=== PATIENT | female | born 1935 | race Caucasian/White ===

== ENCOUNTER 2016-12-13 09:58 | Emergency (ER) | payer MEDICARE, OTHER ==
[~2016-12-13] VITALS: Ht 165.1 cm; Wt 96.6 kg
--- NOTE | 2016-12-13 10:05 | NUR ---
Bib from home due to generalized weakness x 3 days. Pt arrived aao3,.appears in no acute distress,respiration even and unlabored,. patient denies chest pain. No sob, sating well on room air, skin is warm to touch and non diphoretic. Afebrile. vss. gowned and placed pt on tele monitor.
--- NOTE | 2016-12-13 10:07 | NUR ---
iv accessed to right wrist g20. Covered with dry dressing
[2016-12-13] MEDS ORDERED: IV NS 0.9% 1,000 ML ONE (10:14)
[2016-12-13] MEDS ORDERED: IV NS 0.9% 1,000 ML BAG IV ONE ×2 (10:30→11:30)
--- NOTE | 2016-12-13 10:30 | NUR ---
Bella ken in ED - 12/13/16 at 1035 by KEVIN RAM PRESS OPERATOR AT FOR EVALUATION
--- NOTE | 2016-12-13 10:30 | NUR ---
VALVER AT BS FOR CXR
--- NOTE | 2016-12-13 10:31 | NUR ---
URINE SAMPLE SENT TO LAB
--- NOTE | 2016-12-13 10:40 | NUR ---
MD CHAVIS AT BS FOR EVAL
[2016-12-13 10:42] LABS: BASOPHILS # (AUTO) 0.1 /CMM (0.0-0.2); BASOPHILS % (AUTO) 0.5 % (0.0-2.0); HEMATOCRIT 41 % (33-45); HEMOGLOBIN 13.4 g/dL (11.5-14.8); LYMPHOCYTES # (AUTO) 0.7 /CMM (0.8-4.8); LYMPHOCYTES % (AUTO) 4.1 % (20.0-44.0); MEAN CORPUSCULAR HEMOGLOBIN 28 PG (26.0-33.0); MEAN CORPUSCULAR HGB CONC 33 g/dl (31.0-36.0); MEAN CORPUSCULAR VOLUME 85 fL (82-100); MONOCYTES # (AUTO) 1.4 /CMM (0.1-1.30); MONOCYTES % (AUTO) 8.3 % (2.0-12.0); NEUTROPHILS # (AUTO) 14.6 /CMM (1.8-8.9); NEUTROPHILS % (AUTO) 87.1 % (43.0-81.0); PLATELET COUNT (AUTO) 230 /CMM (150-450); RDW COEFFICIENT OF VARIATION 14.1 (11.5-15.0); WHITE BLOOD COUNT (AUTO) 16.7 K/uL (4.3-11.0)
[2016-12-13 10:48] LABS: APPEARANCE,URINE SL CLOUDY (CLEAR); BILIRUBIN,URINE NEGATIVE (NEGATIVE); BLOOD, URINE 1+ Ery/uL (NEGATIVE); COLOR,URINE YELLOW (YELLOW); KETONES,URINE NEGATIVE (NEGATIVE); LEUKOCYTE ESTERASE ,URINE NEGATIVE (NEGATIVE); NITRITE, URINE NEGATIVE (NEGATIVE); PH,URINE 5.5 (5.0-8.0); PROTEIN,URINE 1+ mg/dl (NEGATIVE); UGLUCOSE NEGATIVE (NEGATIVE); UROBILINOGEN,URINE 0.2 EU/dL (0.2)
[2016-12-13 10:52] LABS: CALCIUM, SERUM 8.4 mg/dL (8.5-10.1); CARBON DIOXIDE 18 mmol/L (21-32); CHLORIDE 107 mmol/L (98-107); CREATININE 3.9 mg/dL (0.6-1.3); GLUCOSE 119 mg/dL (74-106); POTASSIUM 4.4 mmol/L (3.5-5.1); SODIUM SERUM 139 mmol/L (136-145); UREA NITROGEN, BLOOD 46 mg/dL (7-18)
[2016-12-13 10:55] LABS: ADD URINE CULTURE NO; BACTERIA,URINE Few /HPF (None Seen); SQUAMOUS EPITHELIAL CELL,UR Few /HPF (None Seen); WBC,URINE 0-2 /HPF (0-3)
[2016-12-13 11:01] LABS: INR 1.04 (0.87-1.13); PROTHROMBIN TIME 11.1 SECS (9.5-12.7)
[2016-12-13 11:02] LABS: ALANINE AMINOTRANSFERASE 12 U/L (12-78); ALBUMIN 2.8 g/dL (3.4-5.0); ALKALINE PHOSPHATASE 98 U/L (46-116); ASPARTATE AMINOTRANSFERASE 6 U/L (15-37); BILIRUBIN,DIRECT 0.1 mg/dL (0.0-0.2); BILIRUBIN,TOTAL 0.5 mg/dL (0.2-1.0); LIPASE 95 U/L (73-393); TOTAL PROTEIN, SERUM 7.4 g/dL (6.4-8.2); TROPONIN I < 0.017 ng/mL (0.00-0.056)
[2016-12-13] MEDS ORDERED: CODE118S2 PO (11:02)
[2016-12-13] MEDS ORDERED: FLUT16SP NS (11:02)
[2016-12-13] MEDS ORDERED: HYDR-4077 PO (11:02)
[2016-12-13] MEDS ORDERED: LEVO100T9 PO (11:02)
[2016-12-13] MEDS ORDERED: UMEC1BLS IH (11:02)
[2016-12-13] MEDS ORDERED: LOSA100T15 PO (11:02)
[2016-12-13] MEDS ORDERED: FAMO20TA8 PO (11:02)
[2016-12-13] MEDS ORDERED: GABA-532 PO (11:02)
[2016-12-13] MEDS ORDERED: ACET-868 PO (11:02)
[2016-12-13] MEDS ORDERED: CHOL100044 PO (11:02)
[2016-12-13] MEDS ORDERED: PRAM0.253 PO (11:02)
[2016-12-13] MEDS ORDERED: IV NS 0.9% 500 ML IV ONE (11:05)
[2016-12-13 11:09] LABS: LACTIC ACID 0.6 mmol/L (0.4-2.0)
--- NOTE | 2016-12-13 11:15 | NUR ---
CALLED NURSING SUP. FOR TELE BED
--- NOTE | 2016-12-13 11:50 | NUR ---
CALLED NURSING SUP. FOR MS BED
--- NOTE | 2016-12-13 12:06 | NUR ---
EPIC PAGED, DR.SIMONA Pretty IRONMOLDER
--- NOTE | 2016-12-13 12:29 | NUR ---
Report given to nurse Fancy Wire Drawer for change of condition
--- NOTE | 2016-12-13 12:33 | NUR ---
dr. luna at bs
--- NOTE | 2016-12-13 12:39 | NUR ---
CALLED [facility], SPOKE WITH KEITH, ASKED HER FOR MS BED, SAID SHE WILL CALL ME BACK IN A FEW MINUTES
[2016-12-13 12:56] VITALS: BP 150/89
--- NOTE | 2016-12-13 12:59 | NUR ---
CALLED BACK KEITH AT [facility], GAVE HER PT INFO, SHE GAVE ME THE NUMBER FOR AND OFFICE , CALLED NUMBER , TRANSFERRED CALL TO
--- NOTE | 2016-12-13 13:03 | NUR ---
ENCINO PANEL ON-CALL PAGED
--- NOTE | 2016-12-13 13:05 | NUR ---
PT WILL BE GOING TO ROOM [address] [facility], FRANKIE IS THE NURSE, NUMBER FOR REPORT IS [phone]
--- NOTE | 2016-12-13 13:11 | NUR ---
CALLED [facility] FOR TRANSPORT TO [facility], ETA 30 MIN
--- NOTE | 2016-12-13 13:20 | NUR ---
[facility] [phone]
--- NOTE | 2016-12-13 13:30 | NUR ---
Report given to nurse Denton from [facility] for khari
--- NOTE | 2016-12-13 13:52 | NUR ---
patient was picked up by two respiratory therapy instructor- medrsponse. julios./
== END 2016-12-13 12:31 | disposition other institution (70) ==
LOC: ER 09:59 → UNDOADMIN 12:12 → MED 12:12
DX: N13.39 Other hydronephrosis (principal); N28.89 Other specified disorders of kidney and ureter; I10 Essential (primary) hypertension
CPT/HCPCS: 36415; 71010; 74176; 80048; 80076; 81001; 82550; 83605; 83690; 84484; 85025; 85730; 87081; 93005; 96360; 99285; A4606; J7030; J7040; 81000-TC; Z7610